=== PATIENT | female | born 1945 | race Caucasian/White ===

== ENCOUNTER 2016-08-23 15:46 | Inpatient (IN) | payer MEDICARE, BC ==
[~2016-08-23] VITALS: Ht 160 cm; Wt 109.3 kg
[~2016-08-23 15:46] MED LIST: LOPRESSOR50 MG PO
[2016-08-23] MEDS ORDERED: SYNTHROID75 MCG PO (20:23)
[2016-08-23] MEDS ORDERED: LASIX 40 MG TAB40 MG PO (20:23)
[2016-08-23] MEDS ORDERED: ENALAPRIL MALEA10 MG PO (20:23)
[2016-08-23] MEDS ORDERED: NEURONTIN 300300 MG PO (20:24)
[2016-08-23] MEDS ORDERED: ZANTAC 150 MG150 MG PO (20:24)
[2016-08-23] MEDS ORDERED: VOLTAREN EC 7575 MG PO (20:24)
[2016-08-23] MEDS ORDERED: DICYCLOMINE HCL20 MG PO (20:25)
[2016-08-23] MEDS ORDERED: LORTAB 5-325 M1 EACH PO (20:25)
[2016-08-23] MEDS ORDERED: MECLIZINE HCL25 MG PO (20:26)
[2016-08-23] MEDS ORDERED: FLOVENT DISKUS50 MCG INH (20:26)
[2016-08-23] MEDS ORDERED: MULTIVITAMINS1 EAC1 PO (20:27)
[2016-08-23] MEDS ORDERED: AZELASTINE137 MCG/0. (20:27)
[2016-08-23] MEDS ORDERED: VITAMIN C 500500 MG PO (20:27)
[2016-08-23] MEDS ORDERED: IRON18 MG PO (20:32)
[2016-08-23] MEDS ORDERED: FOLIC ACID0.4 MG PO (20:32)
[2016-08-23] MEDS ORDERED: XARELTO20 MG PO (20:33)
[2016-08-24 07:36] LABS: HEMOGLOBIN 9.7 gm/dl (12.3-15.3); RED BLOOD COUNT 3.45 M/UL (4.00-5.10); WHITE BLOOD COUNT 5.9 K/UL (4.5-11.0)
[2016-08-24 07:49] LABS: BUN/CREATININE RATIO 16 (0-10)
[2016-08-25 06:01] LABS: HEMOGLOBIN 9.1 gm/dl (12.3-15.3); RED BLOOD COUNT 3.19 M/UL (4.00-5.10); WHITE BLOOD COUNT 6.6 K/UL (4.5-11.0)
[2016-08-25 06:23] LABS: BUN/CREATININE RATIO 13 (0-10)
[2016-08-26 05:56] LABS: HEMOGLOBIN 9.5 gm/dl (12.3-15.3); RED BLOOD COUNT 3.38 M/UL (4.00-5.10); WHITE BLOOD COUNT 5.5 K/UL (4.5-11.0)
[2016-08-26 06:18] LABS: BUN/CREATININE RATIO 8 (0-10)
[2016-08-27 05:44] LABS: HEMOGLOBIN 10.6 gm/dl (12.3-15.3)
[2016-08-27 05:45] LABS: RED BLOOD COUNT 3.73 M/UL (4.00-5.10); WHITE BLOOD COUNT 7.4 K/UL (4.5-11.0)
[2016-08-27 06:03] LABS: BUN/CREATININE RATIO 10 (0-10)
[2016-08-30 05:55] LABS: HEMOGLOBIN 11.5 gm/dl (12.3-15.3); RED BLOOD COUNT 3.88 M/UL (4.00-5.10)
[2016-08-30 06:10] LABS: BUN/CREATININE RATIO 20 (0-10)
[2016-12-02] MEDS ORDERED: LANOXIN125 MCG PO (10:33)
[2016-12-02] MEDS ORDERED: NORCO 10-325 T1 EACH PO (10:33)
[2016-12-02] MEDS ORDERED: TOPROL XL50 MG PO (10:34)
[2016-12-02] MEDS ORDERED: XARELTO20 MG PO (10:35)
[2016-12-02] MEDS ORDERED: ENALAPRIL MALEA10 MG PO (10:35)
[2016-12-02] MEDS ORDERED: NEURONTIN 300300 MG PO (10:36)
[2016-12-02] MEDS ORDERED: LASIX40 MG PO (10:36)
[2016-12-02] MEDS ORDERED: LEVOTHYROXINE75 MCG PO (10:36)
[2016-12-02] MEDS ORDERED: OMEPRAZOLE20 M1 PO (10:37)
[2016-12-02] MEDS ORDERED: MULTI-DAY VITA1 EACH PO (10:38)
[2016-12-02] MEDS ORDERED: NITROSTAT 0.40.4 MG SL (10:38)
[2016-12-02] MEDS ORDERED: VIT C PO (10:39)
[2016-12-02] MEDS ORDERED: PERCOCET 10-321 EACH PO (13:13)
== END 2016-08-30 19:59 | disposition swing bed (61) | DRG 571 ==
LOC: M/S 19:54
PROVIDERS: Emergency Medicine; Hospitalist; Internal Medicine; Orthopaedic Surgery; ADMIT Internal Medicine
PROC: 0S9C3ZX Drainage of Right Knee Joint, Percutaneous Approach, Diagnostic (ICD-10-PCS; 2016-08-24)
PROC: 3E1U38Z Irrigation of Joints using Irrigating Substance, Percutaneous Approach (ICD-10-PCS; 2016-08-24)
PROC: 3E01329 Introduction of Other Anti-infective into Subcutaneous Tissue, Percutaneous Approach (ICD-10-PCS; 2016-08-24)
PROC: 0JBN0ZZ Excision of Right Lower Leg Subcutaneous Tissue and Fascia, Open Approach (ICD-10-PCS; principal; 2016-08-24 15:30)
DX: L02.415 Cutaneous abscess of right lower limb (principal); Z68.41 Body mass index [BMI] 40.0-44.9, adult; M65.9 Synovitis and tenosynovitis, unspecified; L03.115 Cellulitis of right lower limb; I48.0 Paroxysmal atrial fibrillation; I10 Essential (primary) hypertension; E03.9 Hypothyroidism, unspecified; M19.90 Unspecified osteoarthritis, unspecified site; B95.4 Other streptococcus as the cause of diseases classified elsewhere; Z96.651 Presence of right artificial knee joint; Z86.14 Personal history of Methicillin resistant Staphylococcus aureus infection; Z79.01 Long term (current) use of anticoagulants; Z88.8 Allergy status to other drugs, medicaments and biological substances; Z79.899 Other long term (current) drug therapy; E66.01 Morbid (severe) obesity due to excess calories
CPT/HCPCS: 36415; 71010; 80048; 80202; 82150; 82945; 83615; 83735; 83986; 84075; 84157; 85027; 86140; 87040; 87070; 87077; 87186; 87205; 89051; 93005; 94664; 97110; 97530; C1713; J0290; J0295; J0696; J1100; J1885; J2001; J2405; J2710; J3010; J3370; J7030; J7050; J7070; J7120